=== PATIENT | male | born 1930 | race Caucasian/White ===

== ENCOUNTER 2017-05-22 20:49 | Inpatient (IN) | payer OTHER, MEDICARE ==
[~2017-05-22] VITALS: Ht 182.9 cm; Wt 93.1 kg
[~2017-05-22 20:49] MED LIST: ALLOPURINOL300 MG PO; ASPIRIN81 M1; CILOSTAZOL100 MG PO; GLIPIZIDE ER2.5 MG PO; IMBRUVICA140 MG PO; JANUVIA25 MG PO; LIPITOR40 MG PO; LISINOPRIL20 MG PO; OXYCODONE-ACET1 EACH PO; TAMSULOSIN HCL0.4 MG PO; TOPROL XL25 MG PO; ZYDELIG100 MG PO
[2017-05-22 21:07] LABS: HEMATOCRIT 35.5 % (38.0-50.0); MCH 31.1 PG (29.0-34.0); MCHC 33.2 G/DL (30.0-36.0); MCV 93.7 FL (86-99); MEAN PLAT.VOLUME 10.6 uM^3 (9.0-12.4); RBC DIS.WIDTH-CV 12.5 % (11.8-14.6); RBC DIS.WIDTH-SD 42.7 % (39-53); RED BLOOD COUNT 3.79 M/uL (4.00-5.50); WHITE BLOOD COUNT 12.4 K/uL (4.1-10.2)
[2017-05-22 21:09] LABS: PLATELET COUNT 89 K/uL (156-360)
[2017-05-22 21:19] LABS: CHLORIDE 101 mEq/L (99-109); POTASSIUM 4.8 mEq/L (3.7-5.4); SODIUM 135 mEq/L (136-147)
[2017-05-22 21:20] LABS: GLUCOSE 274 mg/dL (70-99)
[2017-05-22 21:22] LABS: ANION GAP 13 MEQ/L (2-14)
[2017-05-22 21:24] LABS: GFR ESTIMATE (CALCULATED) 47 mL/min/
[2017-05-22 21:25] LABS: UREA NITROGEN (BUN) 21 mg/dL (9-23)
[2017-05-22 21:28] LABS: TROP-I INTERPRETATION POSITIVE
[2017-05-22 21:29] LABS: TROPONIN-I 0.89 ng/mL (0.0-0.30)
[2017-05-22 23:00] LABS: INTER. NORMALIZED RATIO 1.2; PROTHROMBIN TIME 13.3 SEC (10.2-12.9)
[2017-05-22 23:03] LABS: PTT 32.6 SEC (25-37)
[2017-05-23] MEDS ORDERED: PRAVACHOL20 MG PO (00:18)
[2017-05-23] MEDS ORDERED: LOMOTIL TABLET1 EACH PO (00:19)
[2017-05-23] MEDS ORDERED: FLUAD 201745 MCG/0.5 IM (00:20)
[2017-05-23] MEDS ORDERED: ALKA-SELTZER H1 EAC1 PO (00:20)
[2017-05-23 03:50] VITALS: BP 107/57
[2017-05-23 05:17] LABS: HDL CHOLESTEROL 39 MG/DL (Desirable>=40); LDL CHOLESTEROL 50 mg/dL (Desirable<100); NON-HDL CHOLESTEROL 70 mg/dL (Desirable<160); SAMPLE HEMOLYSIS CHECK 0; SAMPLE ICTERIC CHECK 0; SAMPLE LIPEMIA CHECK 0; TOTAL CHOLESTEROL 109 mg/dL (Desirable<200); TRIGLYCERIDES 99 MG/DL (Normal: <150)
[2017-05-23 05:42] LABS: HEMATOCRIT 33.6 % (38.0-50.0); MCH 30.9 PG (29.0-34.0); MCHC 32.4 G/DL (30.0-36.0); MCV 95.2 FL (86-99); MEAN PLAT.VOLUME 11.3 uM^3 (9.0-12.4); PLATELET COUNT 92 K/uL (156-360); RBC DIS.WIDTH-CV 12.6 % (11.8-14.6); RBC DIS.WIDTH-SD 43.9 % (39-53); RED BLOOD COUNT 3.53 M/uL (4.00-5.50); WHITE BLOOD COUNT 14.8 K/uL (4.1-10.2)
[2017-05-23 05:49] LABS: TROP-I INTERPRETATION POSITIVE; TROPONIN-I 1.17 ng/mL (0.0-0.30)
[2017-05-23 07:01] LABS: Estimated Average Glucose 140 mg/dL (70-123); HEMOGLOBIN A1c (GLYCOHEMOGLOB) 6.5 % HGB (Below 5.7)
[2017-05-23 08:43] LABS: POINT-OF-CARE METER ID UU14314088; POINT-OF-CARE USER ID ENVKC36
[2017-05-23 09:15] VITALS: BP 106/61
[2017-05-23 09:25] LABS: ADD MIUA? NO; BILIRUBIN NEGATIVE; BLOOD NEGATIVE; COLOR YELLOW ((YELLOW)); GLUCOSE (STRIP) 50; KETONES NEGATIVE; LEUKOCYTES NEGATIVE; NITRITE NEGATIVE; PROTEIN (STRIP) NEGATIVE; SPECIFIC GRAVITY 1.014 (1.000-1.030); UCUL ADDED? NO; UROBILINOGEN 0.2 MG/DL (0.2-1.0)
[2017-05-23 09:54] LABS: C DIFF TOXIN NEGATIVE (NEGATIVE)
[2017-05-23 10:23] LABS: PROBE CHECK PASS; SPECIMEN PROCESSING CONTROL PASS
[2017-05-23 11:55] LABS: POINT-OF-CARE METER ID UU14314088; POINT-OF-CARE USER ID ENVKC36
[2017-05-23 12:00] VITALS: BP 98/62
[2017-05-23 12:09] LABS: TROP-I INTERPRETATION POSITIVE; TROPONIN-I 1.29 ng/mL (0.0-0.30)
[2017-05-23 15:45] VITALS: BP 105/59
[2017-05-23 17:00] LABS: POINT-OF-CARE METER ID UU13113781; POINT-OF-CARE USER ID ENVKC36
[2017-05-23 19:35] VITALS: BP 117/64
[2017-05-23 21:30] LABS: POINT-OF-CARE METER ID UU13113698
[2017-05-23 23:15] VITALS: BP 92/50
[2017-05-24] VITALS (7 sets, daily range): BP systolic 86–132; BP diastolic 53–81
[2017-05-24 05:05] LABS: CHLORIDE 97 mEq/L (99-109); POTASSIUM 5.2 mEq/L (3.7-5.4); SODIUM 131 mEq/L (136-147)
[2017-05-24 05:06] LABS: MAGNESIUM 2.4 mg/dL (1.3-2.7)
[2017-05-24 05:08] LABS: GLUCOSE 259 mg/dL (70-99)
[2017-05-24 05:09] LABS: ANION GAP 14 MEQ/L (2-14)
[2017-05-24 05:10] LABS: TOTAL BILIRUBIN 0.9 mg/dL (0.0-1.0)
[2017-05-24 05:11] LABS: ALKALINE PHOSPHATASE 61 IU/L (3-129)
[2017-05-24 05:12] LABS: GFR ESTIMATE (CALCULATED) 25 mL/min/
[2017-05-24 05:13] LABS: UREA NITROGEN (BUN) 47 mg/dL (9-23)
[2017-05-24 07:46] LABS: POINT-OF-CARE METER ID UU13113698
[2017-05-24 11:52] LABS: POINT-OF-CARE METER ID UU13113698
[2017-05-24 17:25] LABS: POINT-OF-CARE METER ID UU14314088
[2017-05-24 19:52] LABS: INTER. NORMALIZED RATIO 1.2; PROTHROMBIN TIME 13.2 SEC (10.2-12.9)
[2017-05-24 19:55] LABS: PTT 44.9 SEC (25-37)
[2017-05-24 20:07] LABS: ANION GAP 11 MEQ/L (2-14); CHLORIDE 95 MEQ/L (99-109); GFR ESTIMATE (CALCULATED) 25 mL/min/; GLUCOSE 249 mg/dL (70-99); POTASSIUM 4.4 MEQ/L (3.7-5.4); SAMPLE HEMOLYSIS CHECK 0; SAMPLE ICTERIC CHECK 0; SAMPLE LIPEMIA CHECK 0; SODIUM 128 MEQ/L (136-147); UREA NITROGEN (BUN) 53 mg/dL (9-23)
[2017-05-24 20:09] LABS: TROP-I INTERPRETATION POSITIVE; TROPONIN-I 0.83 ng/mL (0.0-0.30)
[2017-05-24 21:51] LABS: POINT-OF-CARE METER ID UU13113781
[2017-05-25 03:00] VITALS: BP 96/56
[2017-05-25 05:24] LABS: HEMATOCRIT 29.5 % (38.0-50.0); MCH 31.6 PG (29.0-34.0); MCHC 34.9 G/DL (30.0-36.0); MCV 90.5 FL (86-99); MEAN PLAT.VOLUME 11.3 uM^3 (9.0-12.4); PLATELET COUNT 96 K/uL (156-360); RBC DIS.WIDTH-CV 12.7 % (11.8-14.6); RBC DIS.WIDTH-SD 41.4 % (39-53); RED BLOOD COUNT 3.26 M/uL (4.00-5.50); WHITE BLOOD COUNT 12.1 K/uL (4.1-10.2)
[2017-05-25 05:38] LABS: CHLORIDE 97 mEq/L (99-109); POTASSIUM 4.6 mEq/L (3.7-5.4); SODIUM 129 mEq/L (136-147)
[2017-05-25 05:40] LABS: GLUCOSE 255 mg/dL (70-99)
[2017-05-25 05:41] LABS: ANION GAP 12 MEQ/L (2-14)
[2017-05-25 05:42] LABS: TOTAL BILIRUBIN 0.8 mg/dL (0.0-1.0)
[2017-05-25 05:43] LABS: ALKALINE PHOSPHATASE 57 IU/L (3-129)
[2017-05-25 05:44] LABS: GFR ESTIMATE (CALCULATED) 24 mL/min/
[2017-05-25 05:45] LABS: UREA NITROGEN (BUN) 61 mg/dL (9-23)
[2017-05-25 08:00] VITALS: BP 102/57
[2017-05-25 08:09] LABS: POINT-OF-CARE METER ID UU13113781
[2017-05-25 11:56] LABS: POINT-OF-CARE METER ID UU13113698
[2017-05-25 12:51] VITALS: BP 108/58
[2017-05-25 16:23] VITALS: BP 95/63
[2017-05-25 16:31] LABS: POINT-OF-CARE METER ID UU14174216
[2017-05-25 19:15] VITALS: BP 110/62
[2017-05-25 21:00] LABS: POINT-OF-CARE METER ID UU14314088
[2017-05-26 00:15] VITALS: BP 106/56
[2017-05-26 02:16] LABS: HEMATOCRIT 28.6 % (38.0-50.0); MCH 31.4 PG (29.0-34.0); MCV 89.9 FL (86-99); MEAN PLAT.VOLUME 10.7 uM^3 (9.0-12.4); PLATELET COUNT 89 K/uL (156-360); RBC DIS.WIDTH-CV 12.6 % (11.8-14.6); RBC DIS.WIDTH-SD 41.7 % (39-53); RED BLOOD COUNT 3.18 M/uL (4.00-5.50); WHITE BLOOD COUNT 8.7 K/uL (4.1-10.2)
[2017-05-26 02:25] LABS: INTER. NORMALIZED RATIO 1.1; PROTHROMBIN TIME 12.9 SEC (10.2-12.9)
[2017-05-26 02:27] LABS: PTT 65.1 SEC (25-37)
[2017-05-26 02:55] LABS: CHLORIDE 95 mEq/L (99-109); POTASSIUM 4.3 mEq/L (3.7-5.4); SODIUM 128 mEq/L (136-147)
[2017-05-26 02:56] LABS: MAGNESIUM 1.9 mg/dL (1.3-2.7)
[2017-05-26 02:59] LABS: ANION GAP 12 MEQ/L (2-14)
[2017-05-26 03:00] LABS: ATYPICAL LYMPHOCYTE 0.9 %; BAND NEUTROPHILS 4.3 % (0-8.0); BASOPHILS 0.9 %; EOSINOPHIL ABS CT 0; INSTRUMENT ABS NEUTROPHIL CT 6.5 K/uL; LYMPHOCYTES 2.6 % (15.0-45.0); OVALOCYTES 1+; PLAT.SUFFICIENCY DECREASED; POIKILOCYTOSIS 1+; SEG.NEUTROPHILS 87.8 % (46.0-76.0); TEAR DROP CELLS 1+; TOTAL BILIRUBIN 0.7 mg/dL (0.0-1.0)
[2017-05-26 03:13] LABS: GLUCOSE 217 mg/dL (70-99)
[2017-05-26 03:16] LABS: ALKALINE PHOSPHATASE 54 IU/L (3-129); GFR ESTIMATE (CALCULATED) 25 mL/min/
[2017-05-26 03:17] LABS: UREA NITROGEN (BUN) 63 mg/dL (9-23)
[2017-05-26 04:37] VITALS: BP 104/52
[2017-05-26 07:16] VITALS: BP 105/61
[2017-05-26 07:35] LABS: POINT-OF-CARE METER ID UU13113698
[2017-05-26 08:55] LABS: INTER. NORMALIZED RATIO 1.1; PROTHROMBIN TIME 12.4 SEC (10.2-12.9)
[2017-05-26 08:58] LABS: PTT 70.2 SEC (25-37)
[2017-05-26 11:13] VITALS: BP 106/59
[2017-05-26 11:44] LABS: POINT-OF-CARE METER ID UU14174216
[2017-05-26 16:40] LABS: POINT-OF-CARE METER ID UU14174216
[2017-05-26 19:05] VITALS: BP 103/62
[2017-05-26 20:51] LABS: POINT-OF-CARE METER ID UU14314088
[2017-05-27] VITALS (7 sets, daily range): BP systolic 90–119; BP diastolic 52–76
[2017-05-27 05:35] LABS: MCH 30.8 PG (29.0-34.0); MCHC 33.7 G/DL (30.0-36.0); MCV 91.5 FL (86-99); MEAN PLAT.VOLUME 10.2 uM^3 (9.0-12.4); PLATELET COUNT 96 K/uL (156-360); RBC DIS.WIDTH-CV 12.5 % (11.8-14.6); RED BLOOD COUNT 3.28 M/uL (4.00-5.50); WHITE BLOOD COUNT 7.3 K/uL (4.1-10.2)
[2017-05-27 06:00] LABS: ALKALINE PHOSPHATASE 53 IU/L (3-129); ANION GAP 9 MEQ/L (2-14); CHLORIDE 97 MEQ/L (99-109); GFR ESTIMATE (CALCULATED) 36 mL/min/; GLUCOSE 229 mg/dL (70-99); POTASSIUM 4.1 MEQ/L (3.7-5.4); SAMPLE HEMOLYSIS CHECK 0; SAMPLE ICTERIC CHECK 0; SAMPLE LIPEMIA CHECK 0; SODIUM 130 MEQ/L (136-147); TOTAL BILIRUBIN 0.7 MG/DL (0.0-1.0); UREA NITROGEN (BUN) 55 mg/dL (9-23)
[2017-05-27 06:07] LABS: ABS NEUTROPHIL COUNT 6.5; BAND NEUTROPHILS 6.1 % (0-8.0); BASOPHILS 0.9 %; EOSINOPHIL ABS CT 0; INSTRUMENT ABS NEUTROPHIL CT 5.4 K/uL; LYMPHOCYTES 3.5 % (15.0-45.0); OVALOCYTES 1+; PLAT.SUFFICIENCY DECREASED; POIKILOCYTOSIS 1+; SEG.NEUTROPHILS 82.6 % (46.0-76.0); TEAR DROP CELLS 1+
[2017-05-27 08:12] LABS: POINT-OF-CARE METER ID UU14314088; POINT-OF-CARE USER ID ENVKC36
[2017-05-27 11:41] LABS: POINT-OF-CARE METER ID UU14314088; POINT-OF-CARE USER ID ENVKC36
[2017-05-27 16:58] LABS: POINT-OF-CARE METER ID UU14174216; POINT-OF-CARE USER ID ENVKC36
[2017-05-27 21:22] LABS: POINT-OF-CARE METER ID UU14174216
[2017-05-28] VITALS (7 sets, daily range): BP systolic 94–147; BP diastolic 55–65
[2017-05-28 05:38] LABS: MCH 31.4 PG (29.0-34.0); MCV 92.3 FL (86-99); MEAN PLAT.VOLUME 10.6 uM^3 (9.0-12.4); PLATELET COUNT 107 K/uL (156-360); RBC DIS.WIDTH-CV 12.4 % (11.8-14.6); RED BLOOD COUNT 3.25 M/uL (4.00-5.50); WHITE BLOOD COUNT 6.1 K/uL (4.1-10.2)
[2017-05-28 06:01] LABS: ALKALINE PHOSPHATASE 57 IU/L (3-129); ANION GAP 9 MEQ/L (2-14); CHLORIDE 98 MEQ/L (99-109); GFR ESTIMATE (CALCULATED) 41 mL/min/; GLUCOSE 197 mg/dL (70-99); SAMPLE HEMOLYSIS CHECK 0; SAMPLE ICTERIC CHECK 0; SAMPLE LIPEMIA CHECK 0; SODIUM 132 MEQ/L (136-147); TOTAL BILIRUBIN 0.6 MG/DL (0.0-1.0); UREA NITROGEN (BUN) 50 mg/dL (9-23)
[2017-05-28 08:03] LABS: POINT-OF-CARE METER ID UU13113781
[2017-05-28 11:12] LABS: POINT-OF-CARE METER ID UU13113781
[2017-05-28 16:23] LABS: POINT-OF-CARE METER ID UU13113781
[2017-05-28 21:27] LABS: POINT-OF-CARE METER ID UU14174216
[2017-05-29 03:55] VITALS: BP 125/63
[2017-05-29 05:59] LABS: HEMATOCRIT 30.3 % (38.0-50.0); MCH 30.8 PG (29.0-34.0); MCHC 33.7 G/DL (30.0-36.0); MCV 91.5 FL (86-99); MEAN PLAT.VOLUME 10.6 uM^3 (9.0-12.4); PLATELET COUNT 102 K/uL (156-360); RBC DIS.WIDTH-CV 12.4 % (11.8-14.6); RBC DIS.WIDTH-SD 41.7 % (39-53); RED BLOOD COUNT 3.31 M/uL (4.00-5.50); WHITE BLOOD COUNT 5.7 K/uL (4.1-10.2)
[2017-05-29 06:32] LABS: ANION GAP 9 MEQ/L (2-14); CHLORIDE 103 MEQ/L (99-109); GFR ESTIMATE (CALCULATED) 51 mL/min/; GLUCOSE 190 mg/dL (70-99); POTASSIUM 4.4 MEQ/L (3.7-5.4); SAMPLE HEMOLYSIS CHECK 0; SAMPLE ICTERIC CHECK 0; SAMPLE LIPEMIA CHECK 0; SODIUM 137 MEQ/L (136-147); UREA NITROGEN (BUN) 42 mg/dL (9-23)
[2017-05-29 08:00] VITALS: BP 106/67
[2017-05-29 08:01] LABS: POINT-OF-CARE METER ID UU14174216
[2017-05-29 11:44] LABS: POINT-OF-CARE METER ID UU14174216
[2017-05-29 12:22] VITALS: BP 105/58
[2017-05-29] MEDS ORDERED: ELIQUIS2.5 MG PO (14:31)
[2017-05-29] MEDS ORDERED: PRAVASTATIN SOD40 MG PO (14:32)
[2017-05-29] MEDS ORDERED: CARDIZEM30 MG PO (14:33)
[2017-05-29] MEDS ORDERED: THORAZINE25 MG PO (14:33)
[2017-05-29] MEDS ORDERED: TYLENOL REGULA325 MG PO (14:33)
[2017-05-29] MEDS ORDERED: FUROSEMIDE40 MG PO (14:34)
[2017-05-29] MEDS ORDERED: TOPROL XL25 MG PO (14:35)
== END 2017-05-29 16:24 | DRG 280 ==
LOC: EME → EDBD 20:49 → 4EAST 05-23 01:24 → EDOF 05-23 01:24 → 4EAST 05-23 01:24 → ENRESERV 05-23 01:25 → 4EAST 05-23 03:36
PROVIDERS: Emergency Medicine; Hospitalist; Internal Medicine; Internal Medicine Nephrology; Physician Assistant Medical
DX: I48.91 Unspecified atrial fibrillation (principal); I21.A1 Myocardial infarction type 2; N17.0 Acute kidney failure with tubular necrosis; C91.10 Chronic lymphocytic leukemia of B-cell type not having achieved remission; I47.1 Supraventricular tachycardia; I45.9 Conduction disorder, unspecified; I13.0 Hypertensive heart and chronic kidney disease with heart failure and stage 1 through stage 4 chronic kidney disease, or unspecified chronic kidney disease; I50.9 Heart failure, unspecified; E11.22 Type 2 diabetes mellitus with diabetic chronic kidney disease; N18.3 Chronic kidney disease, stage 3 (moderate); R09.02 Hypoxemia; D69.59 Other secondary thrombocytopenia; E11.40 Type 2 diabetes mellitus with diabetic neuropathy, unspecified; E11.65 Type 2 diabetes mellitus with hyperglycemia; E87.1 Hypo-osmolality and hyponatremia; E87.70 Fluid overload, unspecified; I95.9 Hypotension, unspecified; R06.6 Hiccough; I27.20 Pulmonary hypertension, unspecified; N40.0 Benign prostatic hyperplasia without lower urinary tract symptoms; I25.5 Ischemic cardiomyopathy; F41.9 Anxiety disorder, unspecified; G47.00 Insomnia, unspecified; E78.5 Hyperlipidemia, unspecified; I25.10 Atherosclerotic heart disease of native coronary artery without angina pectoris; I86.8 Varicose veins of other specified sites; R16.1 Splenomegaly, not elsewhere classified; D64.9 Anemia, unspecified; K21.9 Gastro-esophageal reflux disease without esophagitis; M54.9 Dorsalgia, unspecified; Z66 Do not resuscitate; I25.2 Old myocardial infarction; Z86.73 Personal history of transient ischemic attack (TIA), and cerebral infarction without residual deficits; Z82.49 Family history of ischemic heart disease and other diseases of the circulatory system; Z79.4 Long term (current) use of insulin; Z85.828 Personal history of other malignant neoplasm of skin; Z86.19 Personal history of other infectious and parasitic diseases; Z87.891 Personal history of nicotine dependence; Z95.5 Presence of coronary angioplasty implant and graft
CPT/HCPCS: 71010; 71020; 71250; 74176; 76770; 80048; 80048 91; 80053; 80061; 81003; 82272; 82948; 83036; 83735; 83880; 84100; 84484; 85025; 85027; 85610; 85730; 87493; 93005; 93306; 94799; 97530 GP; 99281; 99285; J1815; J1940; J2405; J3010; J7050; Q0161

== ENCOUNTER 2017-06-01 17:13 | Inpatient (IN) | payer OTHER, MEDICARE ==
[~2017-06-01] VITALS: Ht 203.2 cm; Wt 81.9 kg
[~2017-06-01 17:13] MED LIST changes: +ALKA-SELTZER H1 EAC1 PO; +CARDIZEM30 MG PO; +ELIQUIS2.5 MG PO; +FLUAD 201745 MCG/0.5 IM; +FUROSEMIDE40 MG PO; +LOMOTIL TABLET1 EACH PO; +PRAVACHOL20 MG PO; +PRAVASTATIN SOD40 MG PO; +THORAZINE25 MG PO; +TYLENOL REGULA325 MG PO
[2017-06-01 18:36] LABS: HEMATOCRIT 33.7 % (38.0-50.0); MCH 30.8 PG (29.0-34.0); MCHC 33.5 G/DL (30.0-36.0); MCV 91.8 FL (86-99); MEAN PLAT.VOLUME 10.3 uM^3 (9.0-12.4); PLATELET COUNT 145 K/uL (156-360); RBC DIS.WIDTH-CV 12.7 % (11.8-14.6); RBC DIS.WIDTH-SD 42.7 % (39-53); RED BLOOD COUNT 3.67 M/uL (4.00-5.50)
[2017-06-01 18:43] LABS: INTER. NORMALIZED RATIO 1.6
[2017-06-01 18:46] LABS: PTT 37.6 SEC (25-37)
[2017-06-01 18:51] LABS: CHLORIDE 98 mEq/L (99-109); POTASSIUM 4.9 mEq/L (3.7-5.4); SODIUM 132 mEq/L (136-147)
[2017-06-01 18:55] LABS: ANION GAP 10 MEQ/L (2-14)
[2017-06-01 18:57] LABS: GFR ESTIMATE (CALCULATED) 44 mL/min/; GLUCOSE 343 mg/dL (70-99); MAGNESIUM 2.3 mg/dL (1.3-2.7); PROTHROMBIN TIME 18.3 SEC (10.2-12.9)
[2017-06-01 18:58] LABS: UREA NITROGEN (BUN) 40 mg/dL (9-23)
[2017-06-01 19:04] LABS: TROP-I INTERPRETATION NEGATIVE; TROPONIN-I 0.05 ng/mL (0.0-0.30)
[2017-06-01 19:38] LABS: ABS NEUTROPHIL COUNT 2.7; ANISOCYTOSIS 1+; ATYPICAL LYMPHOCYTE 5.2 %; BASOPHILS 0.9 %; EOSINOPHIL ABS CT 0; EOSINOPHILS 0.9 % (0-5.0); LYMPHOCYTES 6.9 % (15.0-45.0); PLAT.SUFFICIENCY DECREASED; POIKILOCYTOSIS 1+; SEG.NEUTROPHILS 55.7 % (46.0-76.0)
[2017-06-01 20:48] LABS: ADD MIUA? NO; BILIRUBIN NEGATIVE; BLOOD NEGATIVE; COLOR YELLOW ((YELLOW)); GLUCOSE (STRIP) 150; KETONES NEGATIVE; LEUKOCYTES NEGATIVE; NITRITE NEGATIVE; PROTEIN (STRIP) NEGATIVE; SPECIFIC GRAVITY 1.015 (1.000-1.030); UCUL ADDED? NO; UROBILINOGEN 0.2 MG/DL (0.2-1.0)
[2017-06-01] MEDS ORDERED: TYLENOL REGULA325 MG PO (21:27)
[2017-06-01] MEDS ORDERED: CEPACOL SORE T1 EAC9 MM (21:28)
[2017-06-01] MEDS ORDERED: DULCOLAX10 MG PR (21:28)
[2017-06-01] MEDS ORDERED: TRAMADOL HCL50 MG PO (21:29)
[2017-06-01] MEDS ORDERED: PHILLIPS'400 MG/5 M PO (21:29)
[2017-06-01] MEDS ORDERED: CARDIZEM30 MG PO (21:31)
[2017-06-01] MEDS ORDERED: CHLORPROMAZINE25 MG PO (21:32)
[2017-06-01] MEDS ORDERED: FUROSEMIDE40 MG PO (21:33)
[2017-06-01] MEDS ORDERED: NYSTATIN100000 UN1 PO (21:38)
[2017-06-01] MEDS ORDERED: ZOLOFT25 MG PO (21:40)
[2017-06-01] MEDS ORDERED: METOPROLOL SUCC50 MG PO (21:41)
[2017-06-01] MEDS ORDERED: GLIPIZIDE XL10 MG PO (21:44)
[2017-06-01] MEDS ORDERED: TOPROL XL25 MG PO (21:47)
[2017-06-01 22:48] LABS: HDL CHOLESTEROL 50 MG/DL (Desirable>=40); LDL CHOLESTEROL 26 mg/dL (Desirable<100); NON-HDL CHOLESTEROL 42 mg/dL (Desirable<160); TOTAL CHOLESTEROL 92 mg/dL (Desirable<200); TRIGLYCERIDES 79 MG/DL (Normal: <150)
[2017-06-01 23:30] VITALS: BP 108/58
[2017-06-02 00:02] LABS: POINT-OF-CARE METER ID UU14314088
[2017-06-02 00:30] LABS: URIC ACID 11.1 mg/dL (3.1-9.2)
[2017-06-02 01:30] LABS: METH RESISTANT S AUREUS PCR NEGATIVE (NEGATIVE)
[2017-06-02 01:38] LABS: PROBE CHECK PASS; SPECIMEN PROCESSING CONTROL PASS
[2017-06-02 04:00] VITALS: BP 116/72
[2017-06-02 07:15] VITALS: BP 112/60
[2017-06-02 07:36] LABS: Estimated Average Glucose 160 mg/dL (70-123); HEMOGLOBIN A1c (GLYCOHEMOGLOB) 7.2 % HGB (Below 5.7)
[2017-06-02 07:38] LABS: POINT-OF-CARE METER ID UU14314088
[2017-06-02 11:10] LABS: POINT-OF-CARE METER ID UU13113698
[2017-06-02 11:23] VITALS: BP 110/79
[2017-06-02 15:59] VITALS: BP 115/60
[2017-06-02 16:25] LABS: POINT-OF-CARE METER ID UU14314088
[2017-06-02 19:21] VITALS: BP 125/55
[2017-06-02 21:17] LABS: POINT-OF-CARE METER ID UU13113781
[2017-06-02 23:21] VITALS: BP 110/51
[2017-06-03 03:00] VITALS: BP 123/64
[2017-06-03 07:34] LABS: POINT-OF-CARE METER ID UU14314088
[2017-06-03 09:00] VITALS: BP 123/64
[2017-06-03 11:24] LABS: POINT-OF-CARE METER ID UU14314088
[2017-06-03 12:00] VITALS: BP 105/52
[2017-06-03 16:06] LABS: POINT-OF-CARE METER ID UU14314088
[2017-06-03 16:16] VITALS: BP 142/59
[2017-06-03 20:00] VITALS: BP 119/60
[2017-06-03 20:41] LABS: POINT-OF-CARE METER ID UU14314088
[2017-06-03 23:55] VITALS: BP 118/61
[2017-06-04 04:00] VITALS: BP 113/59
[2017-06-04 07:46] LABS: POINT-OF-CARE METER ID UU13113781
[2017-06-04 07:50] VITALS: BP 105/55
[2017-06-04 11:30] VITALS: BP 112/56
[2017-06-04 11:36] LABS: POINT-OF-CARE METER ID UU13113781
[2017-06-04 16:30] VITALS: BP 100/57
[2017-06-04 16:41] LABS: POINT-OF-CARE METER ID UU13113698
[2017-06-04 20:46] LABS: POINT-OF-CARE METER ID UU14314088
[2017-06-04 22:32] VITALS: BP 116/58
[2017-06-05 00:01] VITALS: BP 118/74
[2017-06-05 06:18] VITALS: BP 121/75
[2017-06-05 08:00] VITALS: BP 98/59
[2017-06-05 08:08] LABS: POINT-OF-CARE METER ID UU13113781
[2017-06-05 11:34] LABS: POINT-OF-CARE METER ID UU13113781
[2017-06-05 11:58] VITALS: BP 97/53
[2017-06-05 16:31] LABS: POINT-OF-CARE METER ID UU13113781
[2017-06-05 16:38] VITALS: BP 106/58
[2017-06-05 19:00] VITALS: BP 118/76
[2017-06-05 20:44] LABS: POINT-OF-CARE METER ID UU13113698
[2017-06-06] VITALS: BP 116/56
[2017-06-06 05:09] VITALS: BP 105/64
[2017-06-06 07:21] VITALS: BP 120/71
[2017-06-06 07:37] LABS: POINT-OF-CARE METER ID UU13113698
[2017-06-06 11:21] VITALS: BP 124/60
[2017-06-06 11:41] LABS: POINT-OF-CARE METER ID UU13113698
[2017-06-06] MEDS ORDERED: BENZONATATE100 MG PO (14:37)
[2017-06-06] MEDS ORDERED: DIAZEPAM2 MG PO (14:39)
[2017-06-06] MEDS ORDERED: ZOLPIDEM TARTRAT5 MG PO (14:40)
[2017-06-06] MEDS ORDERED: LEVEMIR100 UNIT/2 SC (14:41)
[2017-06-06] MEDS ORDERED: DIGOXIN250 MCG/1 PO (14:42)
[2017-06-06] MEDS ORDERED: AZITHROMYCIN250 MG1 PO (14:47)
== END 2017-06-06 16:15 | DRG 280 ==
LOC: EME 17:13 → 4EAST 21:22 → EDOF 21:22 → ENRESERV 22:30 → 4EAST 23:18
PROVIDERS: Emergency Medicine; Family Medicine
DX: I48.91 Unspecified atrial fibrillation (principal); I21.4 Non-ST elevation (NSTEMI) myocardial infarction; C91.10 Chronic lymphocytic leukemia of B-cell type not having achieved remission; I12.9 Hypertensive chronic kidney disease with stage 1 through stage 4 chronic kidney disease, or unspecified chronic kidney disease; N18.9 Chronic kidney disease, unspecified; E11.22 Type 2 diabetes mellitus with diabetic chronic kidney disease; E11.40 Type 2 diabetes mellitus with diabetic neuropathy, unspecified; E11.51 Type 2 diabetes mellitus with diabetic peripheral angiopathy without gangrene; E87.1 Hypo-osmolality and hyponatremia; E88.09 Other disorders of plasma-protein metabolism, not elsewhere classified; E88.3 Tumor lysis syndrome; E79.0 Hyperuricemia without signs of inflammatory arthritis and tophaceous disease; I25.10 Atherosclerotic heart disease of native coronary artery without angina pectoris; R60.0 Localized edema; J43.9 Emphysema, unspecified; K21.9 Gastro-esophageal reflux disease without esophagitis; F39 Unspecified mood [affective] disorder; F41.9 Anxiety disorder, unspecified; N40.0 Benign prostatic hyperplasia without lower urinary tract symptoms; Z99.81 Dependence on supplemental oxygen; Z79.84 Long term (current) use of oral hypoglycemic drugs; Z87.891 Personal history of nicotine dependence; Z95.5 Presence of coronary angioplasty implant and graft; Z79.01 Long term (current) use of anticoagulants; Z79.02 Long term (current) use of antithrombotics/antiplatelets
CPT/HCPCS: 71010; 71020; 80048; 80061; 81003; 82948; 83036; 83605; 83735; 84484; 84550; 85025; 85610; 85730; 87040; 87641; 93005; 94799; 97530 GP; 99281; 99285; J1160; J1815; J1940; J2405; J7050; Q0161

== ENCOUNTER 2017-07-10 15:19 | Inpatient (IN) | payer OTHER, MEDICARE ==
[~2017-07-10] VITALS: Ht 182.9 cm; Wt 95.0 kg
[~2017-07-10 15:19] MED LIST changes: +AZITHROMYCIN250 MG1 PO; +BENZONATATE100 MG PO; +CEPACOL SORE T1 EAC9 MM; +CHLORPROMAZINE25 MG PO; +DIAZEPAM2 MG PO; +DIGOXIN250 MCG/1 PO; +DULCOLAX10 MG PR; +GLIPIZIDE XL10 MG PO; +LEVEMIR100 UNIT/2 SC; +METOPROLOL SUCC50 MG PO; +NYSTATIN100000 UN1 PO; +PHILLIPS'400 MG/5 M PO; +TRAMADOL HCL50 MG PO; +ZOLOFT25 MG PO; +ZOLPIDEM TARTRAT5 MG PO
[2017-07-10 16:07] LABS: HEMATOCRIT 32.2 % (38.0-50.0); HEMOGLOBIN 10.3 G/DL (12.5-16.6); MCH 29.3 PG (29.0-34.0); MCV 91.7 FL (86-99); PLATELET COUNT 85 K/uL (156-360); RBC DIS.WIDTH-CV 15.9 % (11.8-14.6); RED BLOOD COUNT 3.51 M/uL (4.00-5.50); WHITE BLOOD COUNT 3.3 K/uL (4.1-10.2)
[2017-07-10 16:21] LABS: CHLORIDE 95 mEq/L (99-109); POTASSIUM 3.5 mEq/L (3.7-5.4); SODIUM 137 mEq/L (136-147)
[2017-07-10 16:23] LABS: GLUCOSE 282 mg/dL (70-99)
[2017-07-10 16:27] LABS: CREATININE 1.3 mg/dL (0.6-1.3); GFR ESTIMATE (CALCULATED) 56 mL/min/ (58.99-99999)
[2017-07-10 16:28] LABS: UREA NITROGEN (BUN) 27 mg/dL (9-23)
[2017-07-10 19:58] LABS: TROP-I INTERPRETATION NEGATIVE; TROPONIN-I 0.02 ng/mL (0.0-0.30)
[2017-07-10] MEDS ORDERED: FUROSEMIDE80 MG PO (22:05)
[2017-07-10] MEDS ORDERED: DIGITEK125 MC2 PO (22:09)
[2017-07-10] MEDS ORDERED: LISINOPRIL5 MG PO (22:09)
[2017-07-10] MEDS ORDERED: ALLOPURINOL100 MG PO (22:10)
[2017-07-10] MEDS ORDERED: PANTOPRAZOLE SO40 MG PO (22:11)
[2017-07-10] MEDS ORDERED: METOPROLOL SUCC25 MG PO (22:11)
[2017-07-10] MEDS ORDERED: SERTRALINE HCL50 MG PO (22:12)
[2017-07-10] MEDS ORDERED: BASAGLAR K100 UNIT/1 SC (22:29)
[2017-07-10] MEDS ORDERED: NOVOLOG PE100 UNITS/ SC (22:30)
[2017-07-10 23:18] LABS: DIGOXIN 1.4 ng/mL (0.8-2.0)
[2017-07-11] VITALS (7 sets, daily range): BP systolic 111–165; BP diastolic 53–67
[2017-07-11 06:12] LABS: TROP-I INTERPRETATION NEGATIVE; TROPONIN-I 0.03 ng/mL (0.0-0.30)
[2017-07-11 12:53] LABS: CHLORIDE 95 MEQ/L (99-109); CREATININE 1.1 MG/DL (0.6-1.3); GFR ESTIMATE (CALCULATED) > 59 mL/min/ (58.99-99999); GLUCOSE 119 mg/dL (70-99); POTASSIUM 3.6 MEQ/L (3.7-5.4); SODIUM 143 MEQ/L (136-147); UREA NITROGEN (BUN) 21 mg/dL (9-23)
[2017-07-12 04:50] VITALS: BP 132/72
[2017-07-12 06:22] LABS: HEMOGLOBIN 9.6 G/DL (12.5-16.6); MCV 90.6 FL (86-99); PLATELET COUNT 90 K/uL (156-360); RBC DIS.WIDTH-CV 15.5 % (11.8-14.6); RBC DIS.WIDTH-SD 51.7 % (39-53); RED BLOOD COUNT 3.31 M/uL (4.00-5.50); WHITE BLOOD COUNT 2.5 K/uL (4.1-10.2)
[2017-07-12 06:49] LABS: CHLORIDE 98 MEQ/L (99-109); GFR ESTIMATE (CALCULATED) > 59 mL/min/ (58.99-99999); POTASSIUM 3.9 MEQ/L (3.7-5.4); SODIUM 142 MEQ/L (136-147); UREA NITROGEN (BUN) 21 mg/dL (9-23)
[2017-07-12 06:52] LABS: GLUCOSE 86 mg/dL (70-99)
[2017-07-12 08:12] VITALS: BP 144/63
[2017-07-12 11:54] VITALS: BP 120/78
[2017-07-12 16:20] VITALS: BP 138/72
[2017-07-12 19:31] VITALS: BP 133/76
[2017-07-13 00:03] VITALS: BP 116/65
[2017-07-13 04:00] VITALS: BP 138/64
[2017-07-13 04:59] LABS: HEMATOCRIT 32.1 % (38.0-50.0); HEMOGLOBIN 10.3 G/DL (12.5-16.6); MCH 29.3 PG (29.0-34.0); MCHC 32.1 G/DL (30.0-36.0); MCV 91.2 FL (86-99); PLATELET COUNT 97 K/uL (156-360); RBC DIS.WIDTH-CV 15.6 % (11.8-14.6); RBC DIS.WIDTH-SD 52.1 % (39-53); RED BLOOD COUNT 3.52 M/uL (4.00-5.50); WHITE BLOOD COUNT 2.5 K/uL (4.1-10.2)
[2017-07-13 05:10] LABS: CHLORIDE 94 mEq/L (99-109); POTASSIUM 3.3 mEq/L (3.7-5.4); SODIUM 142 mEq/L (136-147)
[2017-07-13 05:13] LABS: GLUCOSE 133 mg/dL (70-99)
[2017-07-13 05:16] LABS: GFR ESTIMATE (CALCULATED) > 59 mL/min/ (58.99-99999)
[2017-07-13 05:17] LABS: UREA NITROGEN (BUN) 21 mg/dL (9-23)
[2017-07-13 08:12] VITALS: BP 132/61
[2017-07-13 12:26] VITALS: BP 135/63
[2017-07-13 16:54] VITALS: BP 137/79
[2017-07-13 19:50] VITALS: BP 140/63
[2017-07-14 00:51] VITALS: BP 122/61
[2017-07-14 04:49] VITALS: BP 114/55
[2017-07-14 05:48] LABS: HEMATOCRIT 30.9 % (38.0-50.0); HEMOGLOBIN 9.6 G/DL (12.5-16.6); MCH 28.2 PG (29.0-34.0); MCHC 31.1 G/DL (30.0-36.0); MCV 90.9 FL (86-99); PLATELET COUNT 110 K/uL (156-360); RBC DIS.WIDTH-CV 15.5 % (11.8-14.6); RBC DIS.WIDTH-SD 51.3 % (39-53); WHITE BLOOD COUNT 2.1 K/uL (4.1-10.2)
[2017-07-14 06:09] LABS: ALBUMIN 3.1 G/DL (3.2-4.8); ALKALINE PHOSPHATASE 70 IU/L (3-129); ALT (GPT) 10 IU/L (3-49); AST (GOT) 15 IU/L (2-34); CHLORIDE 95 MEQ/L (99-109); CHLORIDE 96 MEQ/L (99-109); CREATININE 0.9 MG/DL (0.6-1.3); CREATININE 1.1 MG/DL (0.6-1.3); GFR ESTIMATE (CALCULATED) > 59 mL/min/ (58.99-99999); POTASSIUM 3.3 MEQ/L (3.7-5.4); POTASSIUM 3.4 MEQ/L (3.7-5.4); SODIUM 141 MEQ/L (136-147); SODIUM 143 MEQ/L (136-147); TOTAL PROTEIN 4.9 G/DL (6.4-8.3); UREA NITROGEN (BUN) 23 mg/dL (9-23)
[2017-07-14 06:10] LABS: GLUCOSE 95 mg/dL (70-99); GLUCOSE 99 mg/dL (70-99); TOTAL BILIRUBIN 0.8 MG/DL (0.0-1.0)
[2017-07-14 08:28] VITALS: BP 119/80
[2017-07-14 11:37] VITALS: BP 134/63
[2017-07-14 15:50] VITALS: BP 135/70
[2017-07-14 19:39] VITALS: BP 131/63
[2017-07-15] VITALS: BP 121/56
[2017-07-15 03:45] VITALS: BP 120/57
[2017-07-15 08:12] LABS: HEMATOCRIT 32.5 % (38.0-50.0); HEMOGLOBIN 10.1 G/DL (12.5-16.6); MCH 28.1 PG (29.0-34.0); MCHC 31.1 G/DL (30.0-36.0); MCV 90.5 FL (86-99); PLATELET COUNT 102 K/uL (156-360); RBC DIS.WIDTH-CV 15.2 % (11.8-14.6); RBC DIS.WIDTH-SD 51.3 % (39-53); RED BLOOD COUNT 3.59 M/uL (4.00-5.50); WHITE BLOOD COUNT 1.5 K/uL (4.1-10.2)
[2017-07-15 08:14] VITALS: BP 110/56
[2017-07-15 08:15] LABS: CHLORIDE 98 MEQ/L (99-109); GFR ESTIMATE (CALCULATED) > 59 mL/min/ (58.99-99999); POTASSIUM 3.8 MEQ/L (3.7-5.4); SODIUM 142 MEQ/L (136-147); UREA NITROGEN (BUN) 22 mg/dL (9-23)
[2017-07-15 08:19] LABS: GLUCOSE 59 mg/dL (70-99)
[2017-07-15 12:01] VITALS: BP 141/61
[2017-07-15] MEDS ORDERED: K-DUR20 MEQ PO (12:41)
== END 2017-07-15 15:35 | disposition hospice, home (50) | DRG 291 ==
LOC: EME 15:19 → 3EAST 22:15 → EDOF 22:15 → ENRESERV 22:19 → 3EAST 07-11 00:26
PROVIDERS: Hospitalist; Internal Medicine; Physician Assistant Medical
DX: I13.0 Hypertensive heart and chronic kidney disease with heart failure and stage 1 through stage 4 chronic kidney disease, or unspecified chronic kidney disease (principal); I50.43 Acute on chronic combined systolic (congestive) and diastolic (congestive) heart failure; N18.9 Chronic kidney disease, unspecified; E11.22 Type 2 diabetes mellitus with diabetic chronic kidney disease; D61.818 Other pancytopenia; C91.10 Chronic lymphocytic leukemia of B-cell type not having achieved remission; I25.5 Ischemic cardiomyopathy; I48.2 Chronic atrial fibrillation; I25.10 Atherosclerotic heart disease of native coronary artery without angina pectoris; E87.6 Hypokalemia; E11.51 Type 2 diabetes mellitus with diabetic peripheral angiopathy without gangrene; N40.0 Benign prostatic hyperplasia without lower urinary tract symptoms; F41.9 Anxiety disorder, unspecified; Z66 Do not resuscitate; Z51.5 Encounter for palliative care; R09.89 Other specified symptoms and signs involving the circulatory and respiratory systems; J44.9 Chronic obstructive pulmonary disease, unspecified; I27.20 Pulmonary hypertension, unspecified; I08.3 Combined rheumatic disorders of mitral, aortic and tricuspid valves; K21.9 Gastro-esophageal reflux disease without esophagitis; F32.9 Major depressive disorder, single episode, unspecified; I25.2 Old myocardial infarction; E78.5 Hyperlipidemia, unspecified; R09.02 Hypoxemia; Z79.01 Long term (current) use of anticoagulants; Z79.4 Long term (current) use of insulin; Z87.891 Personal history of nicotine dependence
CPT/HCPCS: 71020; 71046; 80048; 80048 91; 80053; 80162; 82948; 83880; 84484; 85025; 85027; 93005; 94799; 99281; 99285; J1815; J1940